=== PATIENT | male | born 1985 | race Two or more races ===

== ENCOUNTER 2024-03-07 20:53 | Emergency (ER) | payer MEDICAID, OTHER ==
[~2024-03-07] VITALS: Ht 188 cm; Wt 90.7 kg
--- NOTE | 2024-03-07 21:04 | NUR ---
BIBFRIEND C/O L ANKLE PAIN S/P TRIP AND FALL AT 1700, NO HEAD TRAUMA +SWELLING.
--- NOTE | 2024-03-07 21:14 | NUR ---
LAW ANGELIAC SEEN PT AT BEDSIDE
[2024-03-07] MEDS ORDERED: IBUPROFEN 400 MG TABLET ONE (21:16)
[2024-03-07] MEDS: IBUPROFEN 400 MG TABLET PO ONE (21:19)
--- NOTE | 2024-03-07 21:20 | NUR ---
BILINGUAL PATIENT SUPPORT CASEWORKER AT BEDSIDE.
--- NOTE | 2024-03-07 22:33 | NUR ---
Patient discharged to home in stable condition. Written and verbal after care instructions given. Patient verbalizes understanding of instruction.
[2024-03-07 22:35] VITALS: BP 120/78; TEMP 98; O2SAT 98
== END 2024-03-07 22:51 | disposition home or self-care (01) ==
LOC: ER 20:57
DX: S82.62XA Displaced fracture of lateral malleolus of left fibula, initial encounter for closed fracture (principal); X50.1XXA Overexertion from prolonged static or awkward postures, initial encounter; Y93.89 Activity, other specified; Y92.89 Other specified places as the place of occurrence of the external cause; Y99.8 Other external cause status
CPT/HCPCS: 73610-TC